=== PATIENT | female | born 1975 | race Caucasian/White ===

== ENCOUNTER 2018-04-10 14:33 | Emergency (ER) | payer OTHER ==
[~2018-04-10] VITALS: Ht 157.5 cm; Wt 59.0 kg
[2018-04-10 14:50] VITALS: BP 133/83; Ht 157.5 cm; Wt 59.0 kg
== END 2018-04-10 16:55 | disposition home or self-care (01) ==
LOC: ED 14:33
DX: S80.02XA Contusion of left knee, initial encounter (principal); S70.12XA Contusion of left thigh, initial encounter; W22.8XXA Striking against or struck by other objects, initial encounter; Y93.89 Activity, other specified; Y92.89 Other specified places as the place of occurrence of the external cause; Y99.8 Other external cause status
CPT/HCPCS: 90715; J1885